=== PATIENT | male | born 2000 | race Caucasian/White ===

== ENCOUNTER 2019-07-15 11:43 | Emergency (ER) | payer SELFPAY ==
[2019-07-15] MEDS ORDERED: Lidocaine 1% w/Epinephrine 1:100K 20 ML VIAL ONE (11:56)
--- NOTE | 2019-07-15 12:52 | RAD ---
RADIOGRAPH CHEST 1 VIEW: DATE: 07/15/2019 TIME: 12:18 PM HISTORY: 18-year-old male with pneumothorax. COMPARISON: none FINDINGS: There is an approximately 25% left apical pneumothorax. There is a small bore catheter overlying the left lateral upper-mid lung zone, overlying the lateral edge of the left fourth rib interspace. Subsegmental atelectasis at the left upper-mid lung zone. Otherwise, the lungs are clear. Cardiomedia stinal silhouette is normal and at midline. Lateral costophrenic angles are not blunted. IMPRESSION: 1. Small to moderate-sized left apical pneumothorax. 2. Small caliber left pleural catheter.
--- NOTE | 2019-07-15 13:32 | RAD ---
CHEST ONE VIEW: HISTORY: Chest pain. FINDINGS: Moderate to large left-sided pneumothorax with probable very mild tension. Heart size is normal. The right lung is clear. IMPRESSION: Moderate to large left sided pneumothorax. A follow-up study done at 12:17 p.m. demonstrates placemen t of a small caliber Heimlich valve and marked reduction in the size of the left sided pneumothorax. POS: OFF
--- NOTE | 2019-07-15 14:02 | CON ---
DATE OF CONSULTATION: 07/15/2019 This is an emergency department note. HISTORY OF PRESENT ILLNESS: Mr. Junior was transferred from the [facility] Emergency Department with a history of spontaneous left pneumothorax. He felt some pain on Saturday, went to [facility] today, had a chest x-ray performed and was found to have a spontaneous left pneumothorax. He has no previous pneumothorax history. He does not vape or smoke. He is 6 feet and 5 inches and thin. PAST MEDICAL HISTORY: None. PAST SURGICAL HISTORY: None. CURRENT MEDICATIONS: None. ALLERGIES: NONE. SOCIAL HISTORY: As above. PHYSICAL EXAMINATION: GENERAL: This is a tall, thin gentleman, resting comfortably in the emergency department. VITAL SIGNS: Heart rate is 70 and regular, blood pressure is 136/72, and oxygen saturations are 97% on room air. LUNGS: Clear bilaterally. CARDIAC: Heart rhythm is regular. ABDOMEN: Soft and nontender. EXTREMITIES: No edema. RADIOLOGY: I have reviewed his chest x-ray, which shows a fairly large left pneumothorax. ASSESSMENT AND PLAN: For tube thoracostomy. We will make plans for discharge to home afterwards. Job ID: [id number]
--- NOTE | 2019-07-15 14:02 | OP ---
DATE OF PROCEDURE: 07/15/2019 PREOPERATIVE DIAGNOSIS: Left spontaneous pneumothorax - first episode. POSTOPERATIVE DIAGNOSIS: Left spontaneous pneumothorax - first episode. PROCEDURE PERFORMED: Left tube thoracostomy. ANESTHESIA: 1% lidocaine for local. DESCRIPTION OF PROCEDURE: Left chest wall was prepped and draped in usual sterile fashion. Skin and subcutaneous tissues were anesthetized with 1% lidocaine. A finder needle was used to access the thorax with a good air bubble. The finder needle was backed into the intercostal space and then was infiltrated with 1% lidocaine. An 8-Spanish tube was then inserted and placed to Hammock valve. He was asked to cough and hopefully cough is one pack up. Chest x-ray is pending. Job ID: [id number]
== END 2019-07-15 13:52 | disposition home or self-care (01) ==
LOC: ERS 11:43
DX: J93.11 Primary spontaneous pneumothorax (principal)
CPT/HCPCS: 32551; 71045

== ENCOUNTER 2019-07-17 08:53 | Outpatient (CLI) | payer BC, SELFPAY ==
--- NOTE | 2019-07-17 09:21 | RAD ---
EXAM: Chest 2 views: HISTORY: Spontaneous left pneumothorax COMPARISON: 07/15/2019 FINDINGS: There is a normal-sized cardiomediastinal silhouette. There is a pigtail catheter projecting over th e left chest wall. There is a small left apical pneumothorax. There is no evidence of consolidation, mass, or pleural effusion. The bones are unremarkable. IMPRESSION: Small left apical pneumothorax
== END 2019-07-17 08:54 | disposition home or self-care (01) ==
LOC: RAD 08:53
PROVIDERS: ATTEND Thoracic Surgery (Cardiothoracic Vascular Surgery)
DX: J93.83 Other pneumothorax (principal)
CPT/HCPCS: 71046